=== PATIENT | female | born 1950 | race Caucasian/White ===

== ENCOUNTER 2019-06-14 14:49 | Inpatient (IN) ==
[2019-06-14] MEDS ORDERED: SODIUM CHLORIDE 0.9% INJ SCH (15:00)
--- NOTE | 2019-06-14 17:23 | EKG Report ---
Test Performed on : 06/14/2019 5:22:04 PM Test Reason : chest pain Blood Pressure : / mmHG Vent. Rate : 069 BPM Atrial Rate : 069 BPM P-R Int : 126 ms QRS Dur : 080 ms QT Int : 406 ms P-R-T Axes : 050 011 040 degrees QTc Int : 435 ms Normal sinus rhythm. Low voltage QRS Borderline ECG No previous ECGs available Confirmed by Rafy ROLAND, P.J.M ([id number]) on 06/15/2019 3:11:05 PM
[2019-06-14] MEDS: NEXIUM IV SCH (17:54)
[2019-06-14] MEDS: NS 1,000 ML IV SCH (17:55)
[2019-06-14 18:43] LABS: BASO# 0.09 X1000 (0.0-0.2); BASO% 1.1 % (0.0-0.8); EOS# 0.63 X1000 (0.0-0.7); EOS% 7.4 % (0.0-10.0); HEMATOCRIT 36.5 % (37.0-47.0); HEMOGLOBIN 12.3 g/dL (12.0-16.0); IMM GRAN# 0.02 X1000 (0.0-0.04); IMM GRAN% 0.2 % (0.0-0.5); LYMPH% 38.6 % (20.5-51.1); MCHC 33.7 g/dL (33-37); MCV 95.1 FL (81-99); MONO# 0.72 X1000 (0.11-0.59); MONO% 8.4 % (1.7-9.3); MPV 10.7 FL (7.4-10.4); NEUT# 3.78 X1000 (1.4-6.5); NEUT% 44.3 % (42.2-75.2); PLT 262 X1000 (130-400); RBC 3.84 XMIL (4.2-5.4); RDW 12.3 % (11.5-14.5); WBC 8.54 X1000 (4.8-10.8)
[2019-06-14 18:59] LABS: URINE SOURCE CLEAN CATCH
[2019-06-14 19:01] LABS: INR 1.05; PROTIME 13.9 Seconds (11.0-16.0)
[2019-06-14 19:16] LABS: BILIRUBIN URINE NEGATIVE (NEGATIVE); BLOOD URINE NEGATIVE (NEGATIVE); COLOR YELLOW; GLUCOSE URINE NEGATIVE (NEGATIVE); KETONE URINE 10 mg/dL (NEGATIVE); LEUKOCYTES URINE NEGATIVE (NEGATIVE); NITRITE URINE NEGATIVE (NEGATIVE); PH URINE 5.5; PROTEIN URINE 30 mg/dL (NEGATIVE); SP GRAVITY URINE 1.034; TURBIDITY URINE CLEAR (CLEAR); UROBILINOGEN URINE NORMAL (NORMAL)
[2019-06-14 19:19] LABS: AGAP 12; ALB/GLOB RATIO 1.8; ALBUMIN 4.2 g/dL (3.5-5.0); ALKALINE PHOSPHATASE 58 U/L (32-104); AMYLASE 25 U/L (20-200); BUN 17 mg/dL (8-22); CALCIUM 9.1 mg/dL (8.8-10.2); CHLORIDE 106 mmol/L (98-107); COSMO 287; CREATININE 0.9 mg/dL (0.5-0.9); ESTIMATED GFR > 60; GLUCOSE 101 mg/dL (70-104); GOT 16 U/L (10-30); GPT 14 U/L (10-36); POTASSIUM 4.4 mmol/L (3.5-5.1); SODIUM 143 mmol/L (136-145); TCO2 25 mmol/L (25-35); TOTAL BILIRUBIN 0.45 mg/dL (0.20-1.00); TOTAL PROTEIN 6.6 g/dL (6.3-8.3)
[2019-06-14 19:24] LABS: UR EPITHELIAL CELLS <10 /HPF (<10); URINE BACTERIA NEGATIVE /HPF; URINE RBC <10 /HPF (<10); URINE WBC <10 /HPF (<10)
[2019-06-14 19:40] LABS: URINE YEAST NONE SEEN
[2019-06-15] MEDS ORDERED: TORADOL IV ONE (01:30)
[2019-06-15] MEDS: NS 1,000 ML IV SCH ×2 (03:17→17:55)
--- NOTE | 2019-06-15 05:35 | HISTORY AND PHYSICAL ---
SUBJECTIVE: Right-sided upper quadrant pain off and on for the last 2 weeks. HISTORY OF PRESENT ILLNESS: She is a 68-year-old white female who came to my office with off and on 2 weeks of right upper quadrant pain. She also getting nausea. Outpatient initially she was seen in the [facility]. They showed she has UTI, possible kidney stone disease. Ultrasound of the kidneys were normal. No evidence of infection noted. Nevertheless, she has a lot of gallstones. CT scan showed no hydronephrosis, no renal stone disease, gallbladder disease which was full of stones. The patient's pain was excruciating for the last 24 hours, nausea, unable to bed. Options are discussed. In light of upcoming Thanksgiving, the patient has wanted to get it done. She is slightly tender in the right upper quadrant. Admitted to the hospital overnight and scheduled for laparoscopic cholecystectomy by Dr. Ruelas in the morning. As a result, a hospital admission was warranted. PAST MEDICAL HISTORY: 1. Symptomatic gallstone disease. 2. Cervical spondylosis. 3. Glucose intolerance. 4. Reactive depression. 5. Hypertension. 6. Osteopenia. 7. Vitamin D deficiency. PAST SURGICAL HISTORY: 1. Partial hysterectomy. 2. C5-C6 fusion. 3. Reduction of both breasts. 4. Right shoulder rotator cuff surgery. MEDICATIONS: 1. Duloxetine 30 mg daily. 2. Hydroxyzine 50 at bedtime. 3. Zyrtec 5 mg daily. 4. Lisinopril 40 daily. 5. Prilosec 40 daily. 6. Vitamin D 86326 once a week. ALLERGIES: Not known. SOCIAL HISTORY: She is . Her was the ENT surgeon. Mother of 3 children. No smoking. No alcohol. Lives in [place]. FAMILY HISTORY: Father of a subdural hematoma at 84. Mom of old age. Influenza vaccine 2018, pneumococcal 2012. REVIEW OF SYSTEMS: HEENT: No headache. No vision problem. No earache. No sore throat. Neck: No goiter. No lymphadenopathy. No bruit. Cardiopulmonary: No chest pain, shortness of breath, PND or orthopnea. GI: Right upper quadrant pain, nausea, constipation, improving. No history of kidney stones. : No history of hesitancy, frequency, dysuria, hematuria. No swelling of legs. No joint pain. Neurologic: No focal symptoms or weakness. PHYSICAL EXAMINATION: VITAL SIGNS: Temperature is 98 degrees, pulse 62, blood pressure is stable. 5 feet 4 inches, 136 pounds. HEENT: Atraumatic, normocephalic. Pupils equal, reactive to light. TMs are normal. Nose and throat within normal limits. NECK: Supple. No lymphadenopathy. No goiter. CHEST: Clear. HEART: Sounds are regular. ABDOMEN: Belly is soft. Tender in the right upper quadrant. Negative Rivera sign. No signs of peritonitis. No obvious neurological deficits. INVESTIGATIONS: CBC: White cell count 8.5, hematocrit 36, platelet 262,000. PT/INR is normal. SMA 7, liver function tests, amylase were normal. Urinalysis, no blood was negative. Trace ketones. ASSESSMENT AND PLAN: A 68-year-old white female admitted to the hospital with symptomatic gallstone disease. Positive ultrasound as well as on the CT and ketones. Plan is NPO after midnight. Surgical consult with Dr. Ruelas. IV fluids and IV Nexium and Zofran for nausea and slowly reconcile home medications and will follow up. cc: Jony Hillman MD
[2019-06-15] MEDS ORDERED: MORPHINE IV ONE (07:07)
[2019-06-15] MEDS ORDERED: SODIUM CHLORIDE 0.9% ONE (08:38)
[2019-06-15] MEDS ORDERED: MARCAINE 0.25% PF/EPI 1:200,000 ONE (08:38)
[2019-06-15] MEDS ORDERED: LR 1,000 ML ONE (08:38)
[2019-06-15] MEDS ORDERED: KEFZOL 1 GM/D5W 1 GM/50 ML IVPB ONE (08:51)
[2019-06-15] MEDS ORDERED: TRANSDERM-SCOP ONE (08:54)
[2019-06-15] MEDS ORDERED: PEPCID ONE (09:23)
[2019-06-15] MEDS ORDERED: BRIDION ONE (09:51)
--- NOTE | 2019-06-15 10:08 | Diag Imaging Result Doc PS360 ---
OPERATIVE CHOLANGIOGRAM - 06/15/2019 INDICATION: CHOLECYSTECTOMY TECHNIQUE: The exam was performed by the patient's surgeon. One image was submitted. COMPARISON: None FINDINGS: Contrast was infused into the cystic duct. This outlines a normal common bile duct. There is good passage of contrast into the duodenum. No filling defects or strictures. IMPRESSION: No complication. Electronically signed by Octavio Peñaloza 06/15/2019 10:05 AM
[2019-06-15] MEDS ORDERED: DILAUDID ONE (10:38)
[2019-06-15] MEDS ORDERED: ZYRTEC PO PRN (11:28)
[2019-06-15] MEDS: ZOFRAN IV PRN ×3 (11:30→20:55)
[2019-06-15] MEDS: TORADOL IV PRN ×2 (11:30→20:55)
--- NOTE | 2019-06-15 11:49 | GENERAL SURGERY CONSULTATION ---
DATE: 06/15/2019 CHIEF COMPLAINT: Right flank pain. HISTORY: This is a 68-year-old, white female who has been in [place] recently and developed some pain toward the tip of the scapula. It has been off and on. She has also had some loose stools. No one else has been ill. She has had a previous ultrasound revealing multiple gallstones. She is now admitted by Dr. Hillman in preparation for a cholecystectomy. PAST MEDICAL HISTORY: Pertinent for the cervical spondylosis, hypertension, vitamin D deficiency, osteopenia, glucose intolerance. PAST SURGICAL HISTORY: Previous surgery includes a partial hysterectomy, C5-C6 fusion, bilateral breast reduction, right rotator cuff shoulder surgery. MEDICATIONS AT HOME: Include duloxetine 30 mg daily, hydroxyzine 50 mg at bedtime, Zyrtec 5 mg daily, lisinopril 40 mg daily, Prilosec 40 mg daily, vitamin D 50,000 units once a week. ALLERGIES: She has no known drug allergies. SOCIAL HISTORY: She is . She denies smoking, alcohol, or illicit drug use. FAMILY HISTORY: Pertinent for father who is from a subdural hematoma, mother from old age. REVIEW OF SYSTEMS: Negative in all other 10 subsystems except as noted above. PHYSICAL EXAMINATION: Vital Signs: She is afebrile, heart rate 72, respiratory rate 16, blood pressure 160/94. No cervical adenopathy. Bilateral breath sounds are present. Heart: Regular rate and rhythm. Abdomen: Soft and nontender. No peripheral edema. She is awake and alert. LABORATORY DATA: Reveals a white count of 8500, hemoglobin 12.3. Chemistry is okay including her LFTs. ASSESSMENT: Chronic calculous cholecystitis. I have discussed the benefits and risks of surgery. She understands and wants to proceed. cc: MD Jony Calderón MD [facility]
--- NOTE | 2019-06-15 15:09 | OPERATIVE NOTE ---
PROCEDURE DATE: 06/15/2019 PROCEDURE PERFORMED: Laparoscopic cholecystectomy with operative cholangiogram. SURGEON: Shahbaz Ruelas MD. QUALITY ENGINEER MEDICAL DEVICE: Nabila. PREOPERATIVE DIAGNOSIS: Chronic calculous cholecystitis. POSTOPERATIVE DIAGNOSIS: Chronic calculous cholecystitis. FINDINGS: The cholangiogram revealed a normal size common bile duct, free flow in the duodenum. No intraluminal filling defects were seen. The common hepatic duct did not visualize well. DESCRIPTION OF PROCEDURE: After satisfactory general endotracheal anesthesia achieved, we anesthetized the skin at each trocar site. We began at the base of the umbilicus, made a curvilinear incision, and then dissected down to the fascia. We scored the fascia, introduced 11 trocar Optiview technique. We insufflated through this trocar. Under direct visualization, used a 5 trocar midclavicular line, 5 trocar near the anterior axillary line, 11 mm trocar in the midepigastrium. We placed the patient in reverse Trendelenburg and turned her to the left. We grasped the fundus of the gallbladder, reflected it cephalad. We then began dissection of the triangle of Calot. We obtained a critical view. We clipped the cystic duct near the junction of the gallbladder, incised the cystic duct, introduced a Bethanie catheter, and shot the cholangiogram. The findings above were noted. We removed the cholangiogram catheter, it actually came out, and we then clipped off the cystic duct x2 distal to the ductotomy and then transected the cystic duct. We then identified the cystic artery, clipped it proximally x2, distally x1, and divided it. One other small branch was clipped and divided. We then used a cautery spatula to dissect the gallbladder away from the liver. After complete separation of the gallbladder from liver, we changed the videolaparoscope to the mid epigastric trocar. We introduced a claw forceps through the umbilical trocar. Delivered the gallbladder to the umbilical trocar site. We had to enlarge the fascial incision because the gallbladder was so full of stones. After enlarging the fascial incision and the skin incision, we were able to deliver the gallbladder out of the abdominal cavity. We looked back. Hemostasis was satisfactory. We then desufflated and removed our trocars. We closed the fascia in the epigastrium with a single 2-0 Polysorb fascial stitch. We then closed the fascia at the umbilicus with 2-0 Polysorb fascial stitches x3. We then irrigated out the umbilical trocar site. We then closed the skin at each incision with 4-0 Polysorb subcuticular stitches. Sterile OpSites were applied. She tolerated it well and was sent to the recovery room in satisfactory condition. cc: MD Jony Calderón MD
[2019-06-15] MEDS: NORCO-10 PO PRN ×2 (15:25→20:55)
[2019-06-15] MEDS: NEXIUM IV SCH (17:51)
[2019-06-15] MEDS ORDERED: SODIUM CHLORIDE 0.9% INJ SCH (18:00)
[2019-06-15] MEDS ORDERED: PROTONIX IV SCH (18:00)
--- NOTE | 2019-06-15 18:28 | PROGRESS NOTE ---
DATE: 06/15/2019 SUBJECTIVE: I appreciated Dr. Ruelas's consult. The patient had a laparoscopic cholecystectomy, normal intraoperative cholangiogram. Postop slightly nausea, abdominal pain. Whitman was given. REVIEW OF SYSTEMS: None reported. OBJECTIVE: Vital Signs: Vitals are stable. HEENT: No change. ASSESSMENT AND PLAN: Postoperative day 1, laparoscopic cholecystectomy. I appreciate Dr. Ruelas's input. If she is stable and tolerating the diet well, we will discharge in the morning. Follow up in my office next week as well as Dr. Ruelas. Continue present postop care and follow up on pathology report. LEVEL OF DOCUMENTATION: 25 minutes. cc: Jony Hillman MD
[2019-06-15] MEDS: PERIDEX MT SCH (20:55)
[2019-06-15] MEDS ORDERED: PRINIVIL PO SCH (21:00)
[2019-06-15] MEDS ORDERED: CYMBALTA PO SCH (21:00)
[2019-06-16] MEDS: ZOFRAN IV PRN (03:48)
[2019-06-16] MEDS: TORADOL IV PRN (03:48)
[2019-06-16] MEDS: NORCO-10 PO PRN (03:48)
[2019-06-16] MEDS: NS 1,000 ML IV SCH (03:48)
--- NOTE | 2019-06-16 06:36 | GENERAL SURGERY PROGRESS NOTE ---
DATE: 06/16/2019 She is postop day 1 after laparoscopic cholecystectomy. She is doing generally well. She is afebrile, heart rate 66, blood pressure 117/62. She denies any nausea. The plan will be for her to go home today. I have asked her to avoid fatty foods for a week, and she will return to see me in the office in a week. I think she will need some antinausea medication in addition to her pain medicine when she is discharged. cc: MD Jony Calderón MD
[2019-06-16 07:56] VITALS: BP 114/64
[2019-06-16] MEDS: PERIDEX MT SCH (08:39)
--- NOTE | 2019-06-16 10:59 | PROGRESS NOTE ---
DATE: 06/16/2019 A 68-year-old, white female patient, admitted with right upper quadrant pain off and on for the last 2 weeks. The patient also had some nausea. Outpatient workup did reveal gallstone. Patient was symptomatic. The patient was admitted to hospital, underwent laparoscopy cholecystectomy. The patient tolerated procedure well. Clinically patient is doing much better. Tolerating liquid well. Denied any nausea or vomiting. No fever or chills. No chest pain or palpitation. Admission history and physical noted. OBJECTIVE: Vital Signs: Blood pressure 114/64, pulse 65, respirations 20, temperature 98.2 degrees. Skin: No rash or petechiae. Neck: Supple. No JVD. Lungs: Bibasilar crepitations. Heart: S1 and S2 heard. Abdomen: Soft, nontender. Bowel sounds present. ELECTRONICS WORKER: Alert, awake, able to move all 4 limbs. The patient's admission lab data noted. CONSIDERATION: Symptomatic gallstones status post cholecystectomy. Clinically, doing much better. Hypertension, vitamin D deficiency, neck pain. Overall patient is doing better. The plan is to discharge patient home. Follow up with surgeon and Dr. Hillman as scheduled. Discharge prescription already given to the patient by surgeon. In case of more distress, call us back or go to emergency room. cc: MD Jony Elliott MD
--- NOTE | 2019-06-16 18:05 | DISCHARGE SUMMARY ---
ADMISSION DATE: 06/14/2019 DISCHARGE DATE: 06/16/2019 DISCHARGING DIAGNOSIS: Symptomatic gallstone disease. SECONDARY DIAGNOSES: 1. Cervical spondylosis. 2. Glucose intolerance. 3. Reactive depression. 4. Hypertension. 5. Osteopenia. 6. Vitamin D deficiency. CONSULTS: Dr. Ruelas. PROCEDURE: Laparoscopic cholecystectomy. BRIEF HISTORY: Please see the H and P that was done on 06/14/2019. In brief, she is a 68-year- old white female who was evaluated in my office with right flank pain, upper quadrant pain for the last 10 days off and on. Initially it was thought possible kidney stone disease. Subsequent workup ultrasound, CT scan showed gallbladder disease with multiple stones. Patient is very symptomatic. She is also tender in the right upper quadrant every time she eats with food. Options are discussed. Patient was admitted for [facility] for laparoscopic cholecystectomy. She was given IV fluids, Zofran, Toradol. Dr. Ruelas was consulted. On the following day lap cholecystectomy done. Postoperative course was uneventful. LABORATORY DATA: CBC is normal. PT/INR is normal. SMA 12, amylase was normal. Urinalysis slightly positive ketones. HOSPITAL COURSE: Rest of the hospital course was uneventful. The patient was discharged home in a stable condition by Dr. Ruelas with the following instructions. 1. Zofran as needed for nausea. 2. Tillman 10 for p.r.n. pain. 3. Lisinopril 40 mg daily. 4. Cymbalta 30 daily. Xyzal 5 mg as needed. 5. Vitamin D 44733 units once a week. FOLLOWUP: Follow up in my office in 10 days as well as Dr. Ruelas. cc: Jony Hillman MD
[2019-06-17] MEDS ORDERED: VITAMIN D PO SCH (09:00)
== END 2019-06-16 09:58 | disposition home or self-care (01) | DRG 419 ==
LOC: DIRADM → OBSVTOIN 14:49 → 4N 16:36
PROVIDERS: ADMIT Internal Medicine; ATTEND Internal Medicine